=== PATIENT | male | born 1990 | race Caucasian/White ===

== ENCOUNTER 2020-07-22 08:32 | Emergency (ER) | payer MEDICAID ==
[~2020-07-22] VITALS: Ht 152.4 cm; Wt 77.0 kg
[2020-07-22] MEDS ORDERED: CEFTRIAXONE SODIUM 500 MG/VIAL IM SCH (10:00)
[2020-07-22] MEDS ORDERED: AZITHROMYCIN 500 MG TABLET PO SCH (10:00)
[2020-07-22] MEDS ORDERED: CLOT15CR27 TP (10:28)
[2020-07-22 10:35] VITALS: BP 130/78
[2020-07-22 15:17] LABS: CLARITY URINE CLEAR (CLEAR); COLOR URINE YELLOW (YELLOW); KETONES URINE NEGATIVE (NEGATIVE); LEUKOCYTE ESTERASE URINE NEGATIVE (NEGATIVE); NITRITE URINE NEGATIVE (NEGATIVE); OCCULT BLOOD URINE NEGATIVE (NEGATIVE); PH URINE 6.5 (4.5-8.0); PROTEIN URINE NEGATIVE (NEGATIVE); SPECIFIC GRAVITY URINE 1.006 (1.005-1.030); UROBILINOGEN URINE 0.2 E.U./dL (0.2-1.0)
[2020-07-24 04:07] LABS: NEISSERIA GONORRHOEAE NAA Negative (Negative)
== END 2020-07-22 10:35 | disposition home or self-care (01) ==
LOC: ER 08:32
DX: Z20.2 Contact with and (suspected) exposure to infections with a predominantly sexual mode of transmission (principal); Z20.822 Contact with and (suspected) exposure to COVID-19; F20.9 Schizophrenia, unspecified; Z98.890 Other specified postprocedural states
CPT/HCPCS: 71045; 81003; 87491; 87591; 96372; 99284; C9803; J0696; U0003; U0005